=== PATIENT | female | born 1955 | race Caucasian/White ===

== ENCOUNTER → 2019-05-03 | Outpatient (CLI) | payer MEDICARE, OTHER ==
[2019-05-03 13:07] LABS: HEMOGLOBIN 11.8 G/DL (11.5-16.0); MEAN PLATELET VOLUME 8.6 FL (7.4-10.4); RED CELL DISTRIBUTION WIDTH 15.7 % (10.0-14.5); WHITE BLOOD COUNT 10.6 10^3/uL (4.3-11.0)
[2019-05-03 13:10] LABS: BILIRUBIN,URINE NEGATIVE (NEGATIVE); CLARITY,URINE CLEAR; COLOR,URINE YELLOW; GLUCOSE, URINE (UA) NEGATIVE (NEGATIVE); KETONES,URINE NEGATIVE (NEGATIVE); LEUKOCYTE ESTERASE ,URINE NEGATIVE (NEGATIVE); NITRITE,URINE NEGATIVE (NEGATIVE); PH,URINE 7 (5-9); PROTEIN,URINE 3+ (NEGATIVE); UROBILINOGEN,URINE NORMAL (NORMAL)
[2019-05-03 13:26] LABS: BACTERIA,URINE NEGATIVE /HPF; SQUAMOUS EPITHELIAL CELL,UR 0-2 /HPF; WBC,URINE 0-2 /HPF
[2019-05-03 13:27] LABS: CREATININE SERUM 0.99 MG/DL (0.60-1.30); POTASSIUM 3.6 MMOL/L (3.6-5.0)
[2019-05-03 13:28] LABS: ALBUMIN 4.5 GM/DL (3.2-4.5); BILIRUBIN,TOTAL 0.2 MG/DL (0.1-1.0); CALCIUM 9.3 MG/DL (8.5-10.1); TOTAL PROTEIN 7.5 GM/DL (6.4-8.2)
[2019-05-03 13:49] LABS: FREE T4 (FREE THYROXINE) 0.85 NG/DL (0.70-1.48)
--- NOTE | 2019-05-03 14:44 | Diagnostic Imaging Report ---
INDICATION: DYSPNEA, EDEMA, ABD DISTENTION COMPARISON: None FINDINGS: Supine and upright views of the abdomen show a nondistended bowel gas pattern. No abnormal air fluid levels or free intraperitoneal air is seen. Extraosseous calcification is seen projecting over the right sacrum superiorly and measures 7 mm. This could be on the basis of gonadal vein phlebolith, although this ureteral calculus could not be entirely excluded. 9 mm extraosseous calcification is also noted projecting over the left pelvis.. Bony and soft tissue structures are within normal limits. No organomegaly is identified. Accompanying upright chest shows normal heart size and pulmonary vascularity. The lungs are well aerated and clear. The mediastinum is normal in appearance. IMPRESSION: 1. No bowel obstruction or free air. 2. Normal chest. No pneumonia or pulmonary edema. 3. Bilateral pelvic calculi, which may be on the basis of venous phleboliths. Distal ureteral calculi cannot be entirely excluded. Dictated by: Dictated on workstation # [id number]
== END ==
LOC: RAD 12:40
PROVIDERS: ATTEND Nurse Practitioner Family
DX: M53.88 Other specified dorsopathies, sacral and sacrococcygeal region (principal); I10 Essential (primary) hypertension; R14.0 Abdominal distension (gaseous); R60.9 Edema, unspecified; R06.00 Dyspnea, unspecified
CPT/HCPCS: 36415; 74022; 80053; 81000; 82550; 83880; 84439; 84443; 84481; 85027; 85379; 86038; 86039; 86141

== ENCOUNTER → 2021-07-22 | Outpatient (CLI) | payer MEDICARE, OTHER ==
[~2021-07-22] MED LIST: CATHETER FLUSH 10 ML SYR IV PRN
[2021-07-22 08:31] VITALS: BP 141/91
--- NOTE | 2021-07-23 08:35 | NUCLEAR STRESS TEST ---
TREADMILL NUCLEAR STRESS TEST Date of procedure: 07/22/2021. Primary care provider: Winsome Calloway APRN. Admitting physician: Winsome Calloway APRN. INDICATION: Atypical chest pain and abnormal electrocardiogram. BASELINE ELECTROCARDIOGRAM: Sinus rhythm with early transition. STRESS TEST PROCEDURE: The stress portion of the test was performed by Winston Calloway DO. Please see his report for further details. NUCLEAR PROCEDURE: The patient was administered 10.4 mCi of intravenous technetium 99m Tetrofosmin at rest for the rest images. The patient was subsequently administered 30.6 mCi of intravenous technetium 99 M Tetrofosmin at peak stress for the stress images. Following an appropriate wait after each injection, imaging was obtained. The images were subsequently processed and reformatted in the usual views. Gated imaging was obtained. The image quality was adequate with a mild degree of gastrointestinal and breast attenuation artifact. CT attenuation correction was used as a adjunct to standard imaging. Both the corrected and uncorrected images were reviewed for interpretation. NUCLEAR RESULTS: There was normal myocardial perfusion in all segments without evidence of infarction or ischemia. There was normal left ventricular chamber size with an end-diastolic volume of 13 mL and an end-systolic volume of 4 mL. There was no evidence of transient ischemic dilatation. The TID ratio was 0.81. There was normal wall motion in all segments with a calculated ejection fra ction of 69%. IMPRESSION: 1. This is the nuclear portion of an exercise treadmill nuclear stress test. Please see other report for stress test findings. 2. There was normal myocardial perfusion in all segments without evidence of infarction or ischemia. 3. There was normal wall motion in all segments with a calculated ejection fraction of 69%. Certain portions of this document may have been dictated utilizing voice recognition technology. Inherent to this technology, typographical and grammatical errors may exist. As much as I am diligent to identify and correct these mistakes, some errors may remain in the document. YESSI WESTON JR, MD Jul 23, 2021 08:35
== END ==
LOC: CARD 07:00
PROVIDERS: ATTEND Nurse Practitioner Family
DX: R07.89 Other chest pain (principal)
CPT/HCPCS: 78452; 93017; A9502